=== PATIENT | female | born 1960 | race Caucasian/White ===

== ENCOUNTER 2024-05-26 10:44 | Outpatient (REF) | payer OTHER, SELFPAY ==
[2024-05-26 16:36] LABS: ALT 27 U/L (14-59); AST 18 U/L (15-37); Albumin 3.8 g/dL (3.4-5.0); Alkaline Phosphatase 57 U/L (46-116); Anion Gap 9.4 mmol/L (3-11); BUN 17 mg/dL (7-18); Bilirubin, Total 0.28 mg/dL (0.2-1.0); CO2 26.6 mmol/L (21.0-32.0); CREATININE 1.1 mg/dL (0.55-1.02); Calcium 9.4 mg/dL (8.5-10.1); Calculated LDL 100 mg/dL (<100); Chloride 107 mmol/L (98-107); Cholesterol 174 mg/dL (<200); Estimated GFR 56.46 (mL/min/1.73m2); Glucose 117 mg/dL (74-106); HDL Cholesterol 52 mg/dL (40-60); Sodium 143 mmol/L (136-145); Triglyceride 112 mg/dL (<150); Vitamin D 25 Total 48.2 ng/mL (30-100)
== END 2024-05-26 10:45 | disposition home or self-care (01) ==
LOC: NCHCN 10:44
PROVIDERS: Visit Provider Nurse Practitioner Family
DX: Z00.00 Encounter for general adult medical examination without abnormal findings (principal)
CPT/HCPCS: 80053; 80061; 82306; 84443

== ENCOUNTER 2025-06-13 10:00 | Outpatient (REF) | payer OTHER, SELFPAY ==
[2025-06-13 16:34] LABS: TSH 2.00 uIU/mL (0.55-4.78)
[2025-06-13 16:43] LABS: ALT 17 U/L (10-49); AST 17 U/L (<34); Albumin 4.4 g/dL (3.2-5.0); Alkaline Phosphatase 79 U/L (46-116); Anion Gap 10.1 mmol/L (3-11); BUN 16 mg/dL (9-23); Bilirubin, Total 0.4 mg/dL (0.2-1.2); CO2 26.9 mmol/L (20.0-31.0); Calcium 9.8 mg/dL (8.3-10.6); Chloride 107 mmol/L (98-107); Glucose 93 mg/dL (74-106); Potassium 4.2 mmol/L (3.5-5.1); Sodium 144 mmol/L (136-145); Total Protein 6.8 g/dL (5.7-8.2)
[2025-06-14 09:45] LABS: HIV-1/2 Ag & Ab Screen Negative (Negative)
[2025-06-14 10:17] LABS: Hepatitis C Ab w Rflx HCV PCR Negative (Negative)
== END 2025-06-13 10:01 | disposition home or self-care (01) ==
LOC: NCHCN 10:00
PROVIDERS: Visit Provider Nurse Practitioner Family
DX: Z00.00 Encounter for general adult medical examination without abnormal findings (principal); E78.5 Hyperlipidemia, unspecified; E03.9 Hypothyroidism, unspecified
CPT/HCPCS: 80053; 86803; 87389; 84443